=== PATIENT | male | born 1990 | race Hispanic/Latino ===

== ENCOUNTER 2024-10-14 17:11 | Emergency (ER) | payer OTHER ==
[2024-10-14] MEDS ORDERED: Sodium Chloride 0.9% 1,000 ML ONE (17:45)
[2024-10-14] MEDS ORDERED: Morphine 4 MG/ML VIAL ONE (17:45)
[2024-10-14] MEDS ORDERED: Promethazine HCl 25 MG/ML VIAL ONE (17:46)
[2024-10-14 18:04] LABS: #Basophils 0.1 thou/uL (0.0-0.2); #Lymphocytes 0.9 thou/uL (1.20-3.40); #Monocytes 0.3 thou/uL (0.11-0.59); #Neutrophils 4.8 thou/uL (1.40-6.50); %Basophils 0.9 % (0.0-1.0); %Eosinophils 0.3 % (0.0-10.0); %Lymphocytes 14.4 % (21.0-51.0); %Monocytes 5.3 % (0.0-10.0); %Neutrophils 79.1 % (42.0-75.0); Hematocrit 40.6 % (42.0-52.0); Hemoglobin 13.2 g/dL (14.0-18.0); Mean Corpuscular HGB CONC 32.5 g/dL (32.0-36.0); Mean Corpuscular Hemoglobin 27.4 pg (27.0-31.0); Mean Corpuscular Volume 84.3 fl (78.0-98.0); Mean Platelet Volume 6.4 fL (7.4-10.4); Platelet Count 308 10x3/uL (130-400); RBC Distribution Width 12.5 % (11.5-14.5); Red Blood Cell (RBC) Count 4.82 mill/uL (4.70-6.10); White Blood Cell (WBC) Count 6.1 10x3/uL (4.8-10.8)
[2024-10-14 18:06] LABS: Bilirubin Negative (Negative); Blood, Urine Large (Negative); Glucose, Urine (Dipstick) Negative (Negative); Ketone, Urine Negative (Negative); Leukocyte Moderate (Negative); Nitrite Positive (Negative); Protein, Urine (Dipstick) 100 mg/dL (Neg-Trace); pH, Urine 7.5 (5.0-9.0)
[2024-10-14 18:08] LABS: Clarity Hazy (Clear)
[2024-10-14 18:13] LABS: Bacteria/HPF 1+ HPF (None Seen); CAUTI Indications for Culture Fever or rigors; Squamous Epithelial 0-3 HPF (0-3); WBC/HPF 21-50 HPF (0-3)
[2024-10-14 18:14] LABS: Urine Culture Reflex Yes Yes
[2024-10-14 18:18] LABS: ALT (SGPT) 21 U/L (Less than 45); AST (SGOT) 26 U/L (11-34); Albumin 3.9 g/dL (3.1-4.5); Alkaline Phosphatase 75 U/L (40-110); Anion Gap 15 mmol/L (10-20); BUN (Urea Nitrogen) 12 mg/dL (8.9-20.6); Bilirubin, Total 0.4 mg/dL (0.3-1.2); Calc. Creatinine Clearance 0 mL/min (70-130); Calcium 9.6 mg/dL (7.8-10.44); Carbon Dioxide 22 mmol/L (22-29); Chloride 105 mmol/L (98-107); Estimated GFR 101; Globulin 3.4 g/dL (2.4-3.5); Glucose 96 mg/dL (70-105); Potassium 3.5 mmol/L (3.5-5.1); Protein, Total 7.3 g/dL (6.0-8.3); Sodium 138 mmol/L (136-145)
[2024-10-14] MEDS ORDERED: HYDROcodone/Acetaminophen 5/325 mg Tablet ONE (18:41)
[2024-10-14] MEDS ORDERED: Cipro 250 MG TAB ONE (18:41)
== END 2024-10-14 18:59 ==
LOC: NAV ERS 17:11
DX: M79.605 Pain in left leg (principal); N39.0 Urinary tract infection, site not specified
CPT/HCPCS: 80053; 81001; 83605; 85025; 87077; 87086; 87186; 96374; 96375; J2270; J2550; J7030